=== PATIENT | male | born 1980 | race Caucasian/White ===

== ENCOUNTER 2017-02-05 13:37 | Emergency (ER) | payer OTHER ==
[~2017-02-05 13:37] MED LIST: BACTRIM DS TABL1 TA1 PO; PREVACID PO
[2017-02-05] MEDS ORDERED: NAPROXEN PO (13:49)
[2017-02-05] MEDS ORDERED: CLEOCIN HCL300 M1 PO (13:49)
== END 2017-02-05 13:40 | disposition home or self-care (01) ==
LOC: SED 13:37
DX: K13.0 Diseases of lips (principal); K21.9 Gastro-esophageal reflux disease without esophagitis; F17.200 Nicotine dependence, unspecified, uncomplicated; Z79.899 Other long term (current) drug therapy
CPT/HCPCS: 99282